=== PATIENT | male | born 1975 | race Caucasian/White ===

== ENCOUNTER 2017-10-27 11:54 | Emergency (ER) | payer BC ==
[2017-10-27 12:11] VITALS: BP 164/107
--- NOTE | 2017-10-27 12:16 | EDM.PDOC ---
ED HPI GENERAL MEDICAL PROBLEM - General Chief Complaint: ENT Problem Stated Complaint: MOUTH SWOLLEN Time Seen by Provider: 10/27/17 12:14 Source of Information: Reports: Patient - History of Present Illness INITIAL COMMENTS - FREE TEXT/NARRATIVE: HISTORY AND PHYSICAL: History of present illness: [Patient has a history of dental abscess he complains of left lower jaw swelling and tenderness, most of his teeth on the lower jaw have been removed previously and was left is in a state of severe decay, he has been working with an oral surgeon out of [facility] for full extraction of all of his teeth. No fever nausea vomiting chills sweats Review of systems: As per history of present illness and below otherwise all systems reviewed and negative. Past medical history: As per history of present illness and as reviewed below otherwise noncontributory. Surgical history: As per history of present illness and as reviewed below otherwise noncontributory. Social history: No reported history of drug or alcohol abuse. Family history: As per history of present illness and as reviewed below otherwise noncontributory. Physical exam: HEENT: Atraumatic, normocephalic, pupils reactive, negative for conjunctival pallor or scleral icterus, mucous membranes moist, throat clear, neck supple, nontender, trachea midline. Dentition as per history of present illness some swelling along left lower gumline with tenderness Lungs: Clear to auscultation, breath sounds equal bilaterally, chest nontender. Heart: S1S2, regular, negative for clicks, rubs, or JVD. Abdomen: Soft, nondistended, nontender. Negative for masses or hepatosplenomegaly. Negative for costovertebral tenderness. Pelvis: Stable nontender. Genitourinary: Deferred. Rectal: Deferred. Extremities: Atraumatic, negative for cords or calf pain. Neurovascular unremarkable. Neuro: Awake, alert, oriented. Cranial nerves II through XII unremarkable. Cerebellum unremarkable. Motor and sensory unremarkable throughout. Exam nonfocal. Diagnostics: [] Therapeutics: [Cleocin 300 by mouth 3 times a day #30 no refill Toradol 10 mg by mouth 3 times a day when necessary #15 no refill Follow-up with oral surgeon LEONEL] Impression: [Dental abscess] Definitive disposition and diagnosis as appropriate pending reevaluation and review of above. Left Lower Oral/Mouth Pain Score (Numeric/FACES): 7 - Related Data Allergies Allergy/AdvReac Type Severity Reaction Status Date / Time meperidine HCl [From Demerol] Allergy Hives Verified 10/27/17 12:11 Penicillins Allergy Hives Verified 10/27/17 12:11 Home Meds: Home Meds . [No Known Home Meds] 10/27/17 [History] Past Medical History HEENT History: Reports: Impaired Vision Other HEENT History: wears glasses Gastrointestinal History: Reports: GERD Musculoskeletal History: Reports: Fracture Hematologic History: Reports: Other (See Below) Other Hematologic History: states he has hx of bleeding from wounds after surgeries - Past Surgical History Neurological Surgical History: Reports: Other (See Below) Social & Family History - Tobacco Use Smoking Status *Q: Current Every Day Smoker (1 ppd) Years of Tobacco use: 15 Packs/Tins Daily: 1 - Recreational Drug Use Recreational Drug Use: No Drug Use in Last 12 Months: No ED ROS GENERAL - Review of Systems Review Of Systems: ROS reveals no pertinent complaints other than HPI. ED EXAM, GENERAL - Physical Exam Exam: See Below Course - Vital Signs Last Recorded V/S: Last Vital Signs Temp 97.4 F 10/27/17 12:08 Pulse 74 10/27/17 12:08 Resp 18 10/27/17 12:08 BP 164/107 H 10/27/17 12:08 Pulse Ox 98 10/27/17 12:08 Departure - Departure Time of Disposition: 12:15 Disposition: Home, Self-Care 01 Condition: Good Clinical Impression: Dental abscess - Discharge Information Referrals: PCP,None [Primary Care Provider] - Additional Instructions: Medication as prescribed Return if symptoms persist or worsen or fever nausea vomiting chills sweats despite antibiotics Follow-up with oral surgeon as soon as possible The following information is given to patients seen in the emergency department who are being discharged to home. This information is to outline your options for follow-up care. We provide all patients seen in our emergency department with a follow-up referral. The need for follow-up, as well as the timing and circumstances, are variable depending upon the specifics of your emergency department visit. If you don't have a primary care physician on staff, we will provide you with a referral. We always advise you to contact your personal physician following an emergency department visit to inform them of the circumstance of the visit and for follow-up with them and/or the need for any referrals to a consulting specialist. The emergency department will also refer you to a specialist when appropriate. This referral assures that you have the opportunity for follow-up care with a specialist. All of these measure are taken in an effort to provide you with optimal care, which includes your follow-up. Under all circumstances we always encourage you to contact your private physician who remains a resource for coordinating your care. When calling for follow-up care, please make the office aware that this follow-up is from your recent emergency room visit. If for any reason you are refused follow-up, please contact the [facility] emergency department at and asked to speak to the emergency department charge nurse.
== END 2017-10-27 12:22 | disposition home or self-care (01) ==
LOC: MW.ED 11:54
DX: K04.7 Periapical abscess without sinus (principal); F17.210 Nicotine dependence, cigarettes, uncomplicated; Z88.0 Allergy status to penicillin; Z88.8 Allergy status to other drugs, medicaments and biological substances
CPT/HCPCS: 99282

== ENCOUNTER 2017-11-05 06:26 | Day surgery (SDC) | payer BC ==
[~2017-11-05 06:26] MED LIST: Lactated Ringers 1,000 ML IV SCH
--- NOTE | 2017-11-05 06:55 | PCM.PREANE ---
Preanesthetic Assessment - Anesthesia/Transfusion/Family Hx Anesthesia History: Prior Anesthesia Without Reaction Other Type of Anesthesia Reaction Comment: states he and his father are very AGGRESSIVE when waking up Family History of Anesthesia Reaction: No Transfusion History: No Prior Transfusion(s) Intubation History: Unknown - Review of Systems General: No Symptoms Pulmonary: No Symptoms Cardiovascular: No Symptoms Gastrointestinal: No Symptoms Neurological: No Symptoms Other: Reports: None - Physical Assessment O2 Sat by Pulse Oximetry: 96 Respiratory Rate: 16 Vital Signs: Last Vital Signs Temp 36.5 C 11/05/17 06:37 Pulse 73 11/05/17 06:37 Resp 16 11/05/17 06:37 BP 135/85 11/05/17 06:37 Pulse Ox 96 11/05/17 06:37 Height: 1.83 m Weight: 87.09 kg ASA Class: 3 Mental Status: Alert & Oriented x3 Airway Class: Mallampati = 2 Dentition: Reports: Missing Tooth/Teeth (most of his teeth missing. No loose teeth.) Thyro-Mental Finger Breadths: 3 Mouth Opening Finger Breadths: 2 ROM/Head Extension: Full Lungs: Clear to Auscultation, Normal Respiratory Effort Cardiovascular: Regular Rate, Regular Rhythm - Allergies Allergies/Adverse Reactions: Allergies Allergy/AdvReac Type Severity Reaction Status Date / Time meperidine HCl [From Demerol] Allergy Hives Verified 11/01/17 13:23 Penicillins Allergy Hives Verified 11/01/17 13:23 - Blood Blood Available: No - Anesthesia Plan Pre-Op Medication Ordered: None - Acknowledgements Anesthesia Type Planned: General Anesthesia Pt an Appropriate Candidate for the Planned Anesthesia: Yes Alternatives and Risks of Anesthesia Discussed w Pt/Guardian: Yes Pt/Guardian Understands and Agrees with Anesthesia Plan: Yes PreAnesthesia Questionnaire HEENT History: Reports: Impaired Vision Other HEENT History: wears glasses Cardiovascular History: Reports: CAD, Hypertension, Other (See Below) Other Cardiovascular History: 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 LCx - 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 Gastrointestinal History: Reports: GERD Musculoskeletal History: Reports: Fracture Neurological History: Reports: None Endocrine/Metabolic History: Reports: None Hematologic History: Reports: Other (See Below) Other Hematologic History: states he has hx of bleeding from wounds after surgeries - Infectious Disease History Infectious Disease History: Reports: Chicken Pox - Past Surgical History Head Surgeries/Procedures: Reports: None HEENT Surgical History: Reports: None Cardiovascular Surgical History: Reports: None GI Surgical History: Reports: None, Hernia, Inguinal (right) Male Surgical History: Reports: None Neurological Surgical History: Reports: Other (See Below) Other Neurological Surgeries/Procedures: states had 2 discs replaced in back Musculoskeletal Surgical History: Reports: ORIF Other Musculoskeletal Surgeries/Procedures:: states hx of ORIF right ankle with later hardware removal - SUBSTANCE USE Smoking Status *Q: Current Every Day Smoker (down from 3 to 1 ppd) Tobacco Use Within Last Twelve Months: Cigarettes Recreational Drug Use History: No - HOME MEDS Home Medications: Home Meds Aspirin [[place] Aspirin] 81 mg PO DAILY 11/01/17 [History] Ibuprofen 3 tab PO ASDIRECTED PRN 11/01/17 [History] Isosorbide Mononitrate [Ismo] 20 mg PO DAILY 11/01/17 [History] Metoprolol Tartrate 0.5 tab PO BID 11/01/17 [History] Nitroglycerin 1 tab SL ASDIRECTED PRN 11/01/17 [History] Omeprazole Magnesium [Prilosec Otc] 1 tab PO DAILY 11/01/17 [History] Rosuvastatin Calcium 40 mg PO DAILY 11/01/17 [History] - CURRENT (IN HOUSE) MEDS Current Meds: Current Medications Lactated Ringer's (Ringers, Lactated) 1,000 mls @ 125 mls/hr IV ASDIRECTED JOSE Last Admin: 11/05/17 06:42 Dose: 125 mls/hr
[2017-11-05] MEDS ORDERED: Midazolam 1 MG/ML 2 ML SDV ONE (07:05)
[2017-11-05] MEDS ORDERED: fentaNYL 100 MCG/2 ML SDV ONE (07:05)
[2017-11-05] MEDS ORDERED: Propofol 200 MG/20 ML SDV ONE (07:05)
[2017-11-05] MEDS ORDERED: diphenhydrAMINE 50 MG/ML SDV ONE (07:10)
[2017-11-05] MEDS ORDERED: Ondansetron 4 MG/2 ML SDV ONE (07:10)
[2017-11-05] MEDS ORDERED: Bupivacaine 0.5% 10 ML SDV ONE (07:13)
[2017-11-05] MEDS ORDERED: Lidocaine 1% 20 ML MDV ONE (07:13)
[2017-11-05] MEDS ORDERED: Ketorolac 30 MG/ML SDV ONE (07:55)
[2017-11-05] MEDS ORDERED: Morphine 10 MG/ML Syringe IVPUSH PRN (08:19)
[2017-11-05] MEDS ORDERED: Acetaminophen/HYDROcodone 325-5 MG Tab PO PRN (08:19)
--- NOTE | 2017-11-05 08:25 | PCM.OPNOTE ---
- General Post-Op/Procedure Note Date of Surgery/Procedure: 11/05/17 Operative Procedure(s): Excision, 4 cm x 7 cm left groin nevus Pre Op Diagnosis: Enlarging left groin nevus Post-Op Diagnosis: Same Anesthesia Technique: General LMA (ASA III) Primary Surgeon: Valentin Garcia Fluid Replacement, Intraop: 700 EBL in mLs: 1 Condition: Good Free Text/Narrative:: Dictation [id number] CPT CODE 10500
[2017-11-05] MEDS ORDERED: Lactated Ringers 1,000 ML IV SCH (08:30)
--- NOTE | 2017-11-05 08:49 | PCM.POSTAN ---
POST ANESTHESIA ASSESSMENT - MENTAL STATUS Mental Status: Alert, Oriented - RESPIRATORY Respiratory Status: Respiratory Rate WNL - CARDIOVASCULAR CV Status: Pulse Rate WNL, Blood Pressure Stable - GASTROINTESTINAL GI Status: No Symptoms - PAIN Pain Score: 0 - POST OP HYDRATION Hydration Status: Adequate & Stable - OBSERVATIONS Free Text/Narrative:: no anesthesia problems
[2017-11-05 09:07] VITALS: BP 122/76
--- NOTE | 2017-11-05 10:30 | OR ---
SURGEON: Valentin Garcia M.D. DATE OF PROCEDURE: 11/05/2017 OPERATION PERFORMED: Excision of 4 cm x 7 cm left groin nevus. ANESTHESIA: General LMA. ASA CLASSIFICATION: III. PREOPERATIVE DIAGNOSIS: Slowly enlarging left groin nevus. POSTOPERATIVE DIAGNOSIS: Slowly enlarging left groin nevus. ESTIMATED BLOOD LOSS: 1 mL. INTRAOPERATIVE FLUID REPLACEMENT: 700 mL of crystalloid. DESCRIPTION OF PROCEDURE: The patient was taken to the operating room, placed on the operating table in the supine position. Time-out was called for appropriate identification of patient and procedure. Surgical site had been marked prior to the patient entering the operating room. Following satisfactory attainment of general anesthesia with placement of an LMA, the surgical site was prepped with Betadine solution. Sterile drapes were applied. The area underlying the nevus was infiltrated with 10 mL of 0.5% Marcaine solution. Excision of the nevus was then carried out using sharp dissection. Bleeding sites were electrocoagulated. The skin defect was then closed with interrupted 3-0 nylon. The surgical site was dressed with antibiotic ointment and a sterile Tegaderm. Sponge, needle, and instrument counts were all correct. The patient tolerated the procedure well. Following emergence from anesthesia and extubation, he was taken to recovery room in stable condition. ALLEN / JOCELYNN /[id number]
== END 2017-11-05 09:17 | disposition home or self-care (01) ==
LOC: MW.SDS 06:26
PROVIDERS: ATTEND Surgery
DX: A63.0 Anogenital (venereal) warts (principal); I25.10 Atherosclerotic heart disease of native coronary artery without angina pectoris; I10 Essential (primary) hypertension; Z88.0 Allergy status to penicillin; Z88.8 Allergy status to other drugs, medicaments and biological substances; Z79.82 Long term (current) use of aspirin; Z79.899 Other long term (current) drug therapy; F17.210 Nicotine dependence, cigarettes, uncomplicated
CPT/HCPCS: 11406; 88305; J1200; J1885; J2405; J3010; J7120; 00400; J2250; J2704

== ENCOUNTER 2020-05-23 11:09 | Emergency (ER) | payer BC ==
[2020-05-23] MEDS ORDERED: Lidocaine 1% PF 2 ML SDV INJECT ONE (11:25)
--- NOTE | 2020-05-23 11:31 | EDM.PDOC ---
ED HPI GENERAL MEDICAL PROBLEM - General Chief Complaint: Laceration Stated Complaint: FINGER INJURY Time Seen by Provider: 05/23/20 11:13 Source of Information: Reports: Patient History Limitations: Reports: No Limitations - History of Present Illness INITIAL COMMENTS - FREE TEXT/NARRATIVE: HISTORY AND PHYSICAL: History of present illness: Patient is a 45-year-old male who presents to the emergency room with complaints of a laceration to his left index finger. He states he was using a saw when his finger had been cut on the blade. He has 2 linear lacerations across the pad of the left index finger. His tetanus is up-to-date. He denies any other extremity involvement. Offers no systemic complaints. Review of systems: As per history of present illness and below otherwise all systems reviewed and negative. Past medical history: As per history of present illness and as reviewed below otherwise noncontributory. Surgical history: As per history of present illness and as reviewed below otherwise noncontributory. Social history: See social history for further information Family history: As per history of present illness and as reviewed below otherwise no ncontributory. Physical exam: General: Well developed and well nourished. Alert and orientated x 3. Nontoxic in appearance and in no acute distress. Vital signs are stable and have been reviewed by me. Nursing notes were reviewed. HEENT: Atraumatic, normocephalic, pupils equal and reactive bilaterally, negative for conjunctival pallor or scleral icterus, mucous membranes moist, TMs normal bilaterally, throat clear, neck supple, nontender, trachea midline. No drooling or trismus noted. No meningeal signs. No hot potato voice noted. Lungs: Clear to auscultation, breath sounds equal bilaterally, chest nontender. Normal work of breathing, no accessory muscles used. Heart: S1S2, regular rate and rhythm without overt murmur Abdomen: Soft, nondistended, nontender. Skin: Two linear adjacent 1 cm lacerations to the pad of the distal left index finger. Otherwise skin is intact, warm, dry. No lesions or rashes noted. Hematologic: No petechiae or purpra. Mucosa appropriate color and normal nail bed color and refill. Extremities: Atraumatic, moves all extremities per self without difficulty or deficits, negative for cords or calf pain. Neurovascular unremarkable. Neuro: Awake, alert, oriented. Cranial nerves II through XII unremarkable. Cerebellum unremarkable. Motor and sensory unremarkable throughout. Exam nonfocal. Notes: Patient declines wanting an x-ray, stating the lacerations are superficial but "it will not stop bleeding". 1% lidocaine was used to anesthetize the area. Usual and customary procedures were followed for suture placement. 4-0 nylon, #4 interrupted sutures were placed -#2 in each laceration.. Bacitracin nonstick dressing was applied. We discussed signs and symptoms that would prompt them to return to the Emergency Department. Medication, follow up and supportive care measures were reviewed and discussed. Voices understanding and is agreeable to plan of care. Denies any further questions or concerns at this time. Diagnostics: None Therapeutics: Lidocaine Prescription: None Impression: Laceration Plan: 1. Keep the area clean and dry. Continue to monitor for signs of infection. Sutures to be removed in 7-10 days. 2. Tylenol and/or ibuprofen as needed for pain management. 3. We always encourage you to follow up with your primary care provider or recommended specialist in the next few days for re-evaluation and further care/management. If your symptoms should worsen, new symptoms develop or any of the signs and symptoms we discussed should arise please return to the emergency room or call 911 (if needed). Definitive disposition and diagnosis as appropriate pending reevaluation and review of above. - Related Data Allergies Allergy/AdvReac Type Severity Reaction Status Date / Time meperidine HCl [From Demerol] Allergy Hives Verified 05/23/20 11:29 Penicillins Allergy Hives Verified 05/23/20 11:29 Home Meds: Home Meds . 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 Gastrointestinal History: Reports: GERD Musculoskeletal History: Reports: Fracture Neurological History: Reports: None Endocrine/Metabolic History: Reports: None Hematologic History: Reports: Other (See Below) Other Hematologic History: states he has hx of bleeding from wounds after surgeries - Infectious Disease History Infectious Disease History: Reports: Chicken Pox - Past Surgical History Head Surgeries/Procedures: Reports: None HEENT Surgical History: Reports: None Cardiovascular Surgical History: Reports: None GI Surgical History: Reports: None, Hernia, Inguinal (right) Male Surgical History: Reports: None Neurological Surgical History: Reports: Other (See Below) Other Neurological Surgeries/Procedures: states had 2 discs replaced in back Musculoskeletal Surgical History: Reports: ORIF Other Musculoskeletal Surgeries/Procedures:: states hx of ORIF right ankle with later hardware removal Social & Family History - Family History Family Medical History: Noncontributory ED ROS GENERAL - Review of Systems Review Of Systems: Comprehensive ROS is negative, except as noted in HPI. ED EXAM, SKIN/RASH Exam: See Below (See dictation) ED SKIN PROCEDURES - Laceration/Wound Repair Left index finger, #1 Appearance: Subcutaneous, Linear, Clean Distal NVT: Neuro & Vascular Intact, No Tendon Injury Anesthetic Type: Local Local Anesthesia - Lidocaine (Xylocaine): 1% Plain Local Anesthetic Volume: 2cc Skin Prep: Chlorhexidine (Hibiciens), Providone-Iodine (Betadine), Saline Saline Irrigation (cc's): 250 Exploration/Debridement/Repair: Wound Explored, In a Bloodless Field, Explored to Base, No Foreign Material Found Closed with: Sutures Lac/Wound length In cm: 1 Suture Size: 4-0 # of Sutures: 2 Suture Type: Nylon, Interrupted, Simple Drain Placement: No Sterile Dressing Applied: Provider Tetanus Status Addressed: Yes Complications: No Left index finger, #2 Appearance: Subcutaneous, Linear, Clean Distal NVT: Neuro & Vascular Intact, No Tendon Injury Anesthetic Type: Local Local Anesthesia - Lidocaine (Xylocaine): 1% Plain Local Anesthetic Volume: 2cc Skin Prep: Chlorhexidine (Hibiciens), Saline, Sterile Drape Saline Irrigation (cc's): 250 Exploration/Debridement/Repair: Wound Explored, In a Bloodless Field, Explored to Base, No Foreign Material Found Closed with: Sutures Lac/Wound length In cm: 1 Suture Size: 4-0 # of Sutures: 2 Suture Type: Nylon, Interrupted, Simple Drain Placement: No Sterile Dressing Applied: Provider Tetanus Status Addressed: Yes Complications: No Course - Vital Signs Last Recorded V/S: Last Vital Signs Temp 96.1 F L 05/23/20 11:24 Pulse 71 05/23/20 11:24 Resp 20 05/23/20 11:24 BP 144/93 H 05/23/20 11:24 Pulse Ox 98 05/23/20 11:24 - Orders/Labs/Meds Meds: Medications Discontinued Medications Generic Name Dose Route Start Last Admin Trade Name Vince PRN Reason Stop Dose Admin Bacitracin 1 dose 05/23/20 11:50 Bacitracin Oint 1 Gm TOP 05/23/20 11:51 ONETIME ONE Lidocaine HCl 2 ml 05/23/20 11:25 Xylocaine-Mpf 1% INJECT 05/23/20 11:26 ONETIME ONE Departure - Departure Time of Disposition: 11:56 Disposition: Home, Self-Care 01 Clinical Impression: Laceration - Discharge Information Instructions: Laceration Care, Adult, [id number] Referrals: PCP,None [Primary Care Provider] - Forms: ED Department Discharge Additional Instructions: The following information is given to patients seen in the emergency department who are being discharged to home. This information is to outline your options for follow-up care. We provide all patients seen in our emergency department with a follow-up referral. The need for follow-up, as well as the timing and circumstances, are variable depending upon the specifics of your emergency department visit. If you don't have a primary care physician on staff, we will provide you with a referral. We always advise you to contact your personal physician following an emergency department visit to inform them of the circumstance of the visit and for follow-up with them and/or the need for any referrals to a consulting specialist. The emergency department will also refer you to a specialist when appropriate. This referral assures that you have the opportunity for follow-up care with a specialist. All of these measure are taken in an effort to provide you with optimal care, which includes your follow-up. Under all circumstances we always encourage you to contact your private physician who remains a resource for coordinating your care. When calling for follow-up care, please make the office aware that this follow-up is from your recent emergency room visit. If for any reason you are refused follow-up, please contact the [facility] Emergency Department at and asked to speak to the emergency department charge nurse. [facility] Primary Care [address] [place] [id number] [facility] [address] [place] [address] Thank you for choosing the [facility] emergency department in [place] for your medical needs today. It was a pleasure caring for you. Today you were seen in the emergency department for laceration. 1. Keep the area clean and dry. Continue to monitor for signs of infection. Sutures to be removed in 7-10 days. 2. Tylenol and/or ibuprofen as needed for pain management. 3. We always encourage you to follow up with your primary care provider or recommended specialist in the next few days for re-evaluation and further care/management. If your symptoms should worsen, new symptoms develop or any of the signs and symptoms we discussed should arise please return to the emergency room or call 911 (if needed). Sepsis Event Note (ED) - Focused Exam Vital Signs: Vital Signs Temp Pulse Resp BP Pulse Ox 05/23/20 11:24 96.1 F L 71 20 144/93 H 98
[2020-05-23] MEDS ORDERED: Bacitracin Oint 1 GM U/D Packet TOP ONE (11:50)
[2020-05-23 12:04] VITALS: BP 152/95; PULSE 64
== END 2020-05-23 11:58 | disposition home or self-care (01) ==
LOC: MW.ED 11:09
DX: S61.211A Laceration without foreign body of left index finger without damage to nail, initial encounter (principal); I10 Essential (primary) hypertension; I25.10 Atherosclerotic heart disease of native coronary artery without angina pectoris; Z88.0 Allergy status to penicillin; Z88.6 Allergy status to analgesic agent; W26.8XXA Contact with other sharp object(s), not elsewhere classified, initial encounter
CPT/HCPCS: 12001; 99282; J2001

== ENCOUNTER 2020-10-24 12:02 | Emergency (ER) | payer BC ==
[2020-10-24] MEDS ORDERED: Sodium Chloride 0.9% 10 ML Syringe FLUSH PRN (12:04)
[2020-10-24] MEDS ORDERED: Sodium Chloride 0.9% 2.5 ML Syringe FLUSH PRN (12:04)
[2020-10-24] MEDS ORDERED: Nitroglycerin 0.4 MG Tab.SL SL ONE (12:27)
[2020-10-24] MEDS ORDERED: Aspirin 81 MG Tab.Chew PO ONE (12:27)
--- NOTE | 2020-10-24 12:27 | EDM.PDOC ---
ED HPI GENERAL MEDICAL PROBLEM - General Chief Complaint: Chest Pain Stated Complaint: CHEST PPAIN Time Seen by Provider: 10/24/20 12:08 Source of Information: Reports: Patient History Limitations: Reports: No Limitations - History of Present Illness INITIAL COMMENTS - FREE TEXT/NARRATIVE: 45-year-old male past medical history CAD no stents, hypertension, GERD presents for chest pain and shortness of breath. Patient notes that last cardiac cath was roughly 6 years ago and showed some coronary stenosis but not enough to warrant stenting. He was following up with Dr. Ajay hernandez but has not seen him in a couple of years. He is currently only on medications for heartburn and no longer on antihypertensives, denies blood thinner or antiplatelet use. Patient states that yesterday afternoon while at rest he began to experience a crushing/tight chest pain in his left anterior chest associated with shortness of breath. He notes that the pain is constant without worsening. His shortness of breath is worse with exertion but his chest pain is largely unchanged. He denies nausea, vomiting, abdominal pain, lower extremity swelling or pain. chest Pain Score (Numeric/FACES): 7 - Related Data Allergies Allergy/AdvReac Type Severity Reaction Status Date / Time meperidine HCl [From Demerol] Allergy Hives Verified 10/24/20 12:04 Penicillins Allergy Hives Verified 10/24/20 12:04 Home Meds: Home Meds Nitroglycerin [Nitrostat] 0.4 mg PO ASDIRECTED PRN 10/24/20 [History] Past Medical History HEENT History: Reports: Impaired Vision, Other (See Below) Other HEENT History: wears glasses Cardiovascular History: Reports: CAD, Hypertension, Other (See Below) Other Cardiovascular History: 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 LCx - not amendable to [facility] [employer] Respiratory History: Reports: None Gastrointestinal History: Reports: GERD Musculoskeletal History: Reports: Fracture Neurological History: Reports: None Endocrine/Metabolic History: Reports: None Hematologic History: Reports: Other (See Below) Other Hematologic History: states he has hx of bleeding from wounds after surgeries - Infectious Disease History Infectious Disease History: Reports: Chicken Pox - Past Surgical History Head Surgeries/Procedures: Reports: None HEENT Surgical History: Reports: None Cardiovascular Surgical History: Reports: None GI Surgical History: Reports: None, Hernia, Inguinal Male Surgical History: Reports: None Neurological Surgical History: Reports: Other (See Below) Other Neurological Surgeries/Procedures: states had 2 discs replaced in back Musculoskeletal Surgical History: Reports: ORIF Other Musculoskeletal Surgeries/Procedures:: states hx of ORIF right ankle with later hardware removal Social & Family History - Family History Family Medical History: No Pertinent Family History - Tobacco Use Tobacco Use Status *Q: Current Every Day Tobacco User Years of Tobacco use: 20 Packs/Tins Daily: 1 - Caffeine Use Caffeine Use: Reports: Coffee - Recreational Drug Use Recreational Drug Use: No ED ROS GENERAL - Review of Systems Review Of Systems: Comprehensive ROS is negative, except as noted in HPI. ED EXAM, GENERAL - Physical Exam Exam: See Below Exam Limited By: No Limitations General Appearance: Alert, WD/WN, No Apparent Distress Throat/Mouth: Normal Voice, No Airway Compromise Head: Atraumatic, Normocephalic Neck: Normal Inspection Respiratory/Chest: No Respiratory Distress, Lungs Clear, Normal Breath Sounds, No Accessory Muscle Use Cardiovascular: Normal Peripheral Pulses, Regular Rate, Rhythm, No Edema GI/Abdominal: Soft, Non-Tender Extremities: Normal Inspection Neurological: Alert Psychiatric: Normal Affect, Normal Mood Skin Exam: Warm, Dry, Intact, Normal Color #1 Interpretation EKG Date: 10/24/20 Time: 11:58 Rhythm: NSR Rate (Beats/Min): 88 [place]: Normal P-Wave: Present QRS: Normal ST-T: Normal QT: Normal OR/PQ Interval: 178 Comparison: NA - No Prior EKG EKG Interpretation Comments: Normal EKG without ischemic changes Course - Vital Signs Last Recorded V/S: Last Vital Signs Temp 98.1 F 10/24/20 12:05 Pulse 89 10/24/20 13:06 Resp 18 10/24/20 12:51 BP 118/74 10/24/20 14:26 Pulse Ox 95 10/24/20 13:06 - Orders/Labs/Meds Orders: Active Orders 24 hr Category Date Time Status EKG Documentation Completion [RC] STAT Care 10/24/20 12:04 Active Sodium Chloride 0.9% [Saline Flush] Med 10/24/20 12:04 Active 10 ml FLUSH ASDIRECTED PRN Sodium Chloride 0.9% [Saline Flush] Med 10/24/20 12:04 Active 2.5 ml FLUSH ASDIRECTED PRN Saline Lock Insert [OM.PC] Stat Oth 10/24/20 12:04 Ordered Medication Orders Sodium Chloride (Saline Flush) 10 ml FLUSH ASDIRECTED PRN PRN Reason: Keep Vein Open Last Admin: 10/24/20 12:13 Dose: 10 ml Documented by: ASIF Sodium Chloride (Saline Flush) 2.5 ml FLUSH ASDIRECTED PRN PRN Reason: Keep Vein Open Last Admin: 10/24/20 12:13 Dose: 2.5 ml Documented by: ASIF Labs: Laboratory Tests 10/24/20 10/24/20 10/24/20 Range/Units 12:09 12:09 15:02 WBC 9.03 (4.0-11.0) K/uL RBC 5.10 (4.50-5.90) M/uL Hgb 15.4 (13.0-17.0) g/dL Hct 44.8 (38.0-50.0) % MCV 87.8 (80.0-98.0) fL MCH 30.2 (27.0-32.0) pg MCHC 34.4 (31.0-37.0) g/dL RDW Std Deviation 43.0 (28.0-62.0) fl RDW Coeff of Anshul 13 (11.0-15.0) % Plt Count 209 (150-400) K/uL MPV 10.30 (7.40-12.00) fL Add Manual Diff YES Neutrophils % (Manual) 43 L (48.0-80.0) % Lymphocytes % (Manual) 50 H (16.0-40.0) % Monocytes % (Manual) 6 (0.0-15.0) % Basophils % (Manual) 1 (0.0-1.5) % Nucleated RBC % 0.0 /100WBC Absolute Seg Neuts 3.9 (1.4-5.7) Lymphocytes # (Manual) 4.5 H (0.6-2.4) Monocytes # (Manual) 0.5 (0.0-0.8) Basophils # (Manual) 0.1 (0.0-0.1) Nucleated RBCs # 0 K/uL Sodium 139 (136-148) mmol/L Potassium 3.7 (3.5-5.1) mmol/L Chloride 103 (98-107) mmol/L Carbon Dioxide 25.5 (21.0-32.0) mmol/L BUN 12 (7.0-18.0) mg/dL Creatinine 1.1 (0.8-1.3) mg/dL Est Cr Clr Drug Dosing 92.10 mL/min Estimated GFR (MDRD) > 60.0 ml/min Glucose 95 (74-106) mg/dL Calcium 9.2 (8.5-10.1) mg/dL Total Bilirubin 0.7 (0.2-1.0) mg/dL AST 33 (15-37) IU/L ALT 64 H (14-63) IU/L Alkaline Phosphatase 86 (46-116) U/L Troponin I < 0.050 < 0.050 (0.000-0.056) ng/mL Total Protein 7.7 (6.4-8.2) g/dL Albumin 3.9 (3.4-5.0) g/dL Globulin 3.8 (2.6-4.0) g/dL Albumin/Globulin Ratio 1.0 (0.9-1.6) Meds: Medications Generic Name Dose Route Start Last Admin Trade Name Freq PRN Reason Stop Dose Admin Sodium Chloride 10 ml 10/24/20 12:04 10/24/20 12:13 Saline Flush FLUSH 10 ml ASDIRECTED PRN Administration Keep Vein Open Sodium Chloride 2.5 ml 10/24/20 12:04 10/24/20 12:13 Saline Flush FLUSH 2.5 ml ASDIRECTED PRN Administration Keep Vein Open Discontinued Medications Generic Name Dose Route Start Last Admin Trade Name Freq PRN Reason Stop Dose Admin Aspirin 324 mg 10/24/20 12:27 10/24/20 12:35 Aspirin PO 10/24/20 12:28 324 mg ONETIME ONE Administration Morphine Sulfate 4 mg 10/24/20 12:38 10/24/20 13:08 Morphine IVPUSH 10/24/20 12:39 Not Given ONETIME ONE Morphine Sulfate 4 mg 10/24/20 13:03 10/24/20 13:07 Morphine IVPUSH 10/24/20 13:04 4 mg ONETIME ONE Administration Nitroglycerin 0.4 mg 10/24/20 12:27 10/24/20 12:36 Nitrostat SL 10/24/20 12:28 0.4 mg ONETIME ONE Administration - Re-Assessments/Exams Free Text/Narrative Re-Assessment/Exam: 10/24/20 12:26 Patient presents with chest pain. Will do cardiac work-up and reassess. 10/24/20 13:55 Patient no longer with chest pain. Initial set of labs unremarkable with negative troponin. Will do 3-hour repeat troponin and disposition accordingly. Spoke with patient regarding importance of cardiology follow-up as he likely needs a stress test versus cardiac catheterization. He agrees to follow-up with his dye weigher Dr. Moss. 10/24/20 15:38 Repeat troponin is negative. Patient is to follow-up with his dye weigher. Return precautions were discussed at length. Departure - Departure Time of Disposition: 15:38 Disposition: Home, Self-Care 01 Condition: Good Clinical Impression: Chest pain Qualifiers: Chest pain type: unspecified Qualified Code(s): R07.9 - Chest pain, unspecified - Discharge Information Instructions: Nonspecific Chest Pain, Adult Referrals: Ivan Lopez MD [Primary Care Provider] - Forms: ED Department Discharge Additional Instructions: Your emergency department cardiac work-up was negative. This does not exclude all cardiac pathology and it is possible that your heart is the cause of your pain. He need to follow-up with a dye weigher. Information is provided below. [facility] Cardiology [address] [place] [address] The following information is given to patients seen in the emergency department who are being discharged to home. This information is to outline your options for follow-up care. We provide all patients seen in our emergency department with a follow-up referral. The need for follow-up, as well as the timing and circumstances, are variable depending upon the specifics of your emergency department visit. If you don't have a primary care physician on staff, we will provide you with a referral. We always advise you to contact your personal physician following an emergency department visit to inform them of the circumstance of the visit and for follow-up with them and/or the need for any referrals to a consulting specialist. The emergency department will also refer you to a specialist when appropriate. This referral assures that you have the opportunity for follow-up care with a specialist. All of these measure are taken in an effort to provide you with optimal care, which includes your follow-up. Under all circumstances we always encourage you to contact your private physician who remains a resource for coordinating your care. When calling for follow-up care, please make the office aware that this follow-up is from your recent emergency room visit. If for any reason you are refused follow-up, please contact the [facility] Emergency Department at and asked to speak to the emergency department charge nurse. Please follow up with your primary care physician. If you do not have a primary care physician, see below: [facility] Primary Care [address] [place] [id number] [facility] [address] [place] [id number] [facility] - [facility] [address] [place] [id number] Sepsis Event Note (ED) - Evaluation Sepsis Screening Result: No Definite Risk - Focused Exam Vital Signs: Vital Signs Temp Pulse Resp BP BP Pulse Ox 10/24/20 14:26 118/74 10/24/20 14:06 112/76 10/24/20 13:46 115/77 10/24/20 13:37 115/63 10/24/20 13:26 114/69 10/24/20 13:16 117/79 10/24/20 13:06 89 114/79 95 10/24/20 12:51 89 18 117/79 91 L 10/24/20 12:40 92 18 121/79 92 L 10/24/20 12:36 131/87 10/24/20 12:13 85 19 142/92 H 97 10/24/20 12:05 98.1 F 89 19 158/99 H 98
[2020-10-24] MEDS ORDERED: Morphine 4 MG/ML Syringe IVPUSH ONE ×2 (12:38→13:03)
[2020-10-24 12:52] LABS: BLOOD UREA NITROGEN,BUN 12 mg/dL (7.0-18.0); CARBON DIOXIDE,CO2 25.5 mmol/L (21.0-32.0); CHLORIDE,CL 103 mmol/L (98-107); GLUCOSE RANDOM 95 mg/dL (74-106); POTASSIUM,K 3.7 mmol/L (3.5-5.1); SODIUM,NA 139 mmol/L (136-148)
--- NOTE | 2020-10-24 12:59 | CR ---
INDICATION: Chest tightness TECHNIQUE: Single view chest. FINDINGS: The lungs are clear. The heart, mediastinum and pulmonary vessels are of normal size. There is no evidence of pleural disease. IMPRESSION: Negative chest. Dictated by Denisse Nguyen MD @ Oct 24 2020 12:58PM Signed by Dr. Denisse Nguyen @ Oct 24 2020 12:59PM
[2020-10-24 15:51] VITALS: BP 117/77; PULSE 70
== END 2020-10-24 15:51 | disposition home or self-care (01) ==
LOC: MW.ED 12:02
DX: R07.9 Chest pain, unspecified (principal); I25.10 Atherosclerotic heart disease of native coronary artery without angina pectoris; I10 Essential (primary) hypertension; Z88.5 Allergy status to narcotic agent; Z88.0 Allergy status to penicillin; Z72.0 Tobacco use
CPT/HCPCS: 36415; 71045; 80053; 84484; 85025; 93005; 96374; 99285; A9270; J2270; 93010; 99283

== ENCOUNTER 2023-03-18 18:33 | Emergency (ER) | payer BC ==
[2023-03-18] MEDS ORDERED: Lidocaine 1% PF 2 ML SDV INJECT ONE (20:32)
[2023-03-18] MEDS ORDERED: Acetaminophen/oxyCODONE 325-5 MG Tab PO ONE (20:57)
[2023-03-18 21:30] VITALS: BP 152/105; PULSE 61
== END 2023-03-18 21:28 | disposition home or self-care (01) ==
LOC: MW.ED 18:33
DX: L02.31 Cutaneous abscess of buttock (principal); I10 Essential (primary) hypertension; F17.210 Nicotine dependence, cigarettes, uncomplicated; I25.10 Atherosclerotic heart disease of native coronary artery without angina pectoris; Z88.5 Allergy status to narcotic agent; Z88.0 Allergy status to penicillin; Z79.899 Other long term (current) drug therapy
CPT/HCPCS: 10061; 99282; A9270; J3490

== ENCOUNTER 2025-07-17 00:42 | Emergency (ER) | payer BC ==
[2025-07-17 01:01] LABS: BASOPHILS ABSOLUTE AUTO 0.12 K/uL (0.00-0.20); BASOPHILS PERCENT AUTO 1.1 % (0.0-1.0); EOSINOPHILS ABSOLUTE AUTO 0.37 K/uL (0.00-0.45); EOSINOPHILS PERCENT AUTO 3.3 % (0.0-6.0); IMMATURE GRAN ABSOLUTE AUTO 0.03 K/uL (0.00-0.05); IMMATURE GRAN PERCENT AUTO 0.3 % (0.0-0.4); LYMPHOCYTES ABSOLUTE AUTO 4.77 K/uL (1.00-4.80); LYMPHOCYTES PERCENT AUTO 41.9 % (24.0-44.0); MEAN PLATELET VOLUME 9.6 fL (9.4-12.4); MONOCYTES ABSOLUTE AUTO 0.91 K/uL (0.00-0.80); MONOCYTES PERCENT AUTO 8.0 % (0.0-8.0); NEUTROPHILS ABSOLUTE AUTO 5.18 K/uL (1.80-7.70); NEUTROPHILS PERCENT AUTO 45.4 % (41.0-71.0); NRBC ABSOLUTE 0.00 K/uL (0.00-0.02); NRBC PERCENT 0.0 /100WBC (0.0-0.2); PLATELET COUNT,PLT 270 K/uL (150-400); RED BLOOD CELL COUNT 5.32 M/uL (4.52-5.90); WHITE BLOOD CELL COUNT,WBC 11.38 K/uL (3.9-11.3)
[2025-07-17] MEDS: Ondansetron 4 MG/2 ML SDV IVPUSH ONE (01:02)
[2025-07-17 01:26] LABS: A/G RATIO 1.1 (0.9-1.6); ALANINE AMINOTRANSFERASE,ALT 30.0 IU/L (14-63); ASPARTATE AMNIOTRANSFERASE,AST 28.0 IU/L (15-37); BILIRUBIN TOTAL 0.5 mg/dL (0.2-1.0); BLOOD UREA NITROGEN,BUN 18.0 mg/dL (7.0-18.0); CARBON DIOXIDE,CO2 27.2 mmol/L (21.0-32.0); CHLORIDE,CL 104.0 mmol/L (98-107); CREATININE 1.3 mg/dL (0.8-1.3); EST CRCL DRUG DOSING (CG) 71.6 mL/min; GLUCOSE RANDOM 122.0 mg/dL (74-106); POTASSIUM,K 3.3 mmol/L (3.5-5.1); PROTEIN TOTAL,TP 7.6 g/dL (6.4-8.2); SODIUM,NA 141.0 mmol/L (136-148)
[2025-07-17 01:31] LABS: ESTIMATED GFR 67.0 mL/min (>60)
[2025-07-17] MEDS: Iopamidol 755 MG/ML 500 ML Multipack Bottle IVPUSH STA (02:39)
[2025-07-17] MEDS: Ketorolac 30 MG/ML SDV IVPUSH ONE (03:19)
[2025-07-17 03:24] LABS: GLUCOSE,URINE NEGATIVE (NEGATIVE); OCCULT BLOOD,URINE LARGE (NEGATIVE)
[2025-07-17 03:26] LABS: APPEARANCE,URINE SLT CLOUDY
[2025-07-17 03:35] LABS: EPITHELIAL CELLS,URINE RARE (NONE-FEW)
[2025-07-17 03:57] VITALS: BP 132/70; PULSE 68
== END 2025-07-17 03:56 | disposition home or self-care (01) ==
LOC: MW.ED 00:42
DX: K52.9 Noninfective gastroenteritis and colitis, unspecified (principal); N20.1 Calculus of ureter; I10 Essential (primary) hypertension; I25.10 Atherosclerotic heart disease of native coronary artery without angina pectoris; K21.9 Gastro-esophageal reflux disease without esophagitis; Z79.899 Other long term (current) drug therapy; Z88.0 Allergy status to penicillin; Z88.8 Allergy status to other drugs, medicaments and biological substances; Z75.3 Unavailability and inaccessibility of health-care facilities
CPT/HCPCS: 36415; 74177; 80053; 81001; 83690; 85025; 93005; 96361; 96374; 96375; 96376; 99284; J1885; J2405; J7030; Q9967; 93010; J1171

== ENCOUNTER 2025-07-22 11:57 | Emergency (ER) | payer BC ==
[2025-07-22 12:40] LABS: BASOPHILS ABSOLUTE AUTO 0.05 K/uL (0.00-0.20); BASOPHILS PERCENT AUTO 0.5 % (0.0-1.0); EOSINOPHILS ABSOLUTE AUTO 0.05 K/uL (0.00-0.45); EOSINOPHILS PERCENT AUTO 0.5 % (0.0-6.0); IMMATURE GRAN ABSOLUTE AUTO 0.03 K/uL (0.00-0.05); IMMATURE GRAN PERCENT AUTO 0.3 % (0.0-0.4); LYMPHOCYTES ABSOLUTE AUTO 1.16 K/uL (1.00-4.80); LYMPHOCYTES PERCENT AUTO 10.7 % (24.0-44.0); MEAN PLATELET VOLUME 10.2 fL (9.4-12.4); MONOCYTES ABSOLUTE AUTO 0.78 K/uL (0.00-0.80); MONOCYTES PERCENT AUTO 7.2 % (0.0-8.0); NEUTROPHILS ABSOLUTE AUTO 8.75 K/uL (1.80-7.70); NEUTROPHILS PERCENT AUTO 80.8 % (41.0-71.0); NRBC ABSOLUTE 0.00 K/uL (0.00-0.02); NRBC PERCENT 0.0 /100WBC (0.0-0.2); PLATELET COUNT,PLT 168 K/uL (150-400); RED BLOOD CELL COUNT 4.53 M/uL (4.52-5.90); WHITE BLOOD CELL COUNT,WBC 10.82 K/uL (3.9-11.3)
[2025-07-22] MEDS: Ondansetron 4 MG/2 ML SDV IVPUSH ONE (12:46)
[2025-07-22 12:59] LABS: A/G RATIO 0.9 (0.9-1.6); ALANINE AMINOTRANSFERASE,ALT 25.0 IU/L (14-63); ASPARTATE AMNIOTRANSFERASE,AST 23.0 IU/L (15-37); BILIRUBIN TOTAL 1.9 mg/dL (0.2-1.0); BLOOD UREA NITROGEN,BUN 32.0 mg/dL (7.0-18.0); CARBON DIOXIDE,CO2 24.5 mmol/L (21.0-32.0); CHLORIDE,CL 100.0 mmol/L (98-107); CREATININE 2.9 mg/dL (0.8-1.3); EST CRCL DRUG DOSING (CG) 32.1 mL/min; GLUCOSE RANDOM 102.0 mg/dL (74-106); POTASSIUM,K 4.3 mmol/L (3.5-5.1); PROTEIN TOTAL,TP 7.0 g/dL (6.4-8.2); SODIUM,NA 135.0 mmol/L (136-148)
[2025-07-22 13:00] LABS: ESTIMATED GFR 25.0 mL/min (>60)
[2025-07-22 14:50] LABS: GLUCOSE,URINE NEGATIVE (NEGATIVE); OCCULT BLOOD,URINE MODERATE (NEGATIVE)
[2025-07-22 14:51] LABS: APPEARANCE,URINE HAZY
[2025-07-22 14:57] LABS: EPITHELIAL CELLS,URINE MODERATE (NONE-FEW)
[2025-07-22] MEDS: cefTRIAXone 1 GM in Water For Injection, Sterile 10 ML IVPUSH ONE ×2 (15:10)
[2025-07-22 16:08] VITALS: BP 130/73; PULSE 88
== END 2025-07-22 18:45 ==
LOC: MW.ED 11:57
DX: K56.7 Ileus, unspecified (principal); N20.0 Calculus of kidney; N39.0 Urinary tract infection, site not specified; I10 Essential (primary) hypertension; I25.10 Atherosclerotic heart disease of native coronary artery without angina pectoris; F17.200 Nicotine dependence, unspecified, uncomplicated; Z88.0 Allergy status to penicillin; Z88.8 Allergy status to other drugs, medicaments and biological substances
CPT/HCPCS: 36415; 74176; 80053; 81001; 83690; 85025; 96361; 96374; 96375; 96376; 99285; J0696; J1171; J2405; J7030